=== PATIENT | female | born 1980 | race Caucasian/White ===

== ENCOUNTER 2016-10-10 11:38 | Emergency (ER) | payer OTHER ==
[~2016-10-10] VITALS: Ht 165.1 cm; Wt 72.6 kg
[2016-10-10 11:47] VITALS: BP 122/57
[2016-10-10] MEDS ORDERED: TETRACAINE 0.5% OPHTH SOLUTION 4ML BOTTLE. OS ONE (12:15)
[2016-10-10] MEDS ORDERED: FLUORESCEIN OPHTH TEST STRIP. OS ONE (12:15)
[2016-10-10] MEDS ORDERED: ERYT1OIN6 OP (13:21)
--- NOTE | 2016-10-10 13:21 | PHYS DOC ---
Past Medical History Past Medical History: Other Additional Past Medical Histor: ALLERGIES Past Surgical History: Cholecystectomy, Tubal ligation, Other Additional Past Surgical Histo: PLATES IN BILAT LEGS Alcohol Use: None Drug Use: None Adult General Chief Complaint Chief Complaint: FOREIGN BODY/EYES HPI HPI Patient is a 36 year old female who presents stating she has a foreign body to the left eye. Patient states she doesn't know if anything got in her eye but she states feels like there is something in it since yesterday. Patient states it's also itchy. She states this morning she woke up and she had crusted yellow matter around the eye. Patient states she does not have pinkeye because she's had it before and it is not feeling the same. Review of Systems Review of Systems Constitutional: Denies fever or chills [] Eyes: Foreign object to the left eye Musculoskeletal: Denies back pain or joint pain [] Integument: Denies rash or skin lesions [] Neurologic: Denies headache, focal weakness or sensory changes [] Endocrine: Denies polyuria or polydipsia [] Current Medications Current Medications Current Medications Medications (Trade) Dose Ordered Sig/Phillip Start Time Stop Time Status Last Admin Dose Admin Fluorescein Sodium (Ful-Sonam) 1 strip 1X ONCE 10/10/16 12:15 10/10/16 12:16 DC 10/10/16 12:14 1 STRIP Tetracaine HCl (Tetracaine) 1 drop 1X ONCE 10/10/16 12:15 10/10/16 12:16 DC 10/10/16 12:14 1 DROP Allergies Allergies Allergies Coded Allergies Type Severity Reaction Last Updated Verified prochlorperazine Allergy Severe Anaphylaxis 10/10/16 Yes Physical Exam Physical Exam Constitutional: Well developed, well nourished, no acute distress, non-toxic appearance. [] HENT: Normocephalic, atraumatic, bilateral external ears normal, oropharynx moist, no oral exudates, nose normal. [] Eyes: PERRLA, EOMI, left conjunctiva is mildly injected, no discharge. See procedure note Skin: Warm, dry, no erythema, no rash. [] Back: No tenderness, no CVA tenderness. [] Extremities: No tenderness, no cyanosis, no clubbing, ROM intact, no edema. [] Neurologic: Alert and oriented X 3, normal motor function, normal sensory function, no focal deficits noted. [] Psychologic: Affect normal, judgement normal, mood normal. [] Current Patient Data Vital Signs Vital Signs Date Time Temp Pulse Resp B/P (MAP) Pulse Ox O2 Delivery O2 Flow Rate FiO2 10/10/16 11:47 98.2 101 20 98 Room Air 98.2 EKG EKG [] Radiology/Procedures Radiology/Procedures Indication: Left conjunctiva Procedure: The area of the foreign body was left conjunctiva. Local anesthesia over the foreign body site was 2 drops of tetracaine, the eye was stained with fluorescein. No foreign body was found. No cornea abrasion. The patient tolerated the procedure well Complications: none Course & Med Decision Making Course & Med Decision Making Pertinent Labs and Imaging studies reviewed. (See chart for details) Patient is in the ED with concern for foreign object to the left eye. The left eye was examined. There was no foreign object. The cornea is mildly injected. She was discharged with erythromycin. Provided integrated circuit ic layout designer for follow-up. Tetanus is up-to-date. Dragon Disclaimer Dragon Disclaimer This electronic medical record was generated, in whole or in part, using a voice recognition dictation system. Departure Departure Impression: Primary Impression: Foreign body, eye Disposition: HOME, SELF-CARE Condition: STABLE Referrals: UNKNOWN PCP NAME (PCP) Bety MCELROY MD Follow-up with the provided integrated circuit ic layout designer in one week if symptoms continue Patient Instructions: Eye - Foreign Body Additional Instructions: You were seen for foreign body to the left eye. We have evaluated your left eye. There is no foreign body. We put you on antibiotics. Use them as prescribed. Follow-up with the provided integrated circuit ic layout designer in one week if symptoms continue. Keep your hands clean. Do not apply makeup to the left eye. Scripts Erythromycin Base (Erythromycin) 1 Gm Oint...g. 1 GM OP Q4HRS W/A, #1 MISC Prov: TENNILLE LOZANO APRN 10/10/16 Problem Qualifiers Primary Impression: Foreign body, eye Encounter type: initial encounter Laterality: left Qualified Codes: T15.92XA - Foreign body on external eye, part unspecified, left eye, initial encounter TENNILLE LOZANO KATHIA Oct 10, 2016 13:21
== END 2016-10-10 13:25 | disposition home or self-care (01) ==
LOC: ER 11:38
DX: T15.92XA Foreign body on external eye, part unspecified, left eye, initial encounter (principal); Z88.8 Allergy status to other drugs, medicaments and biological substances; X58.XXXA Exposure to other specified factors, initial encounter; Y93.89 Activity, other specified; Y99.8 Other external cause status; Y92.89 Other specified places as the place of occurrence of the external cause
CPT/HCPCS: 99283